=== PATIENT | male | born 1955 | race Caucasian/White ===

== ENCOUNTER 2019-05-13 06:38 | Emergency (ER) | payer OTHER ==
[~2019-05-13] VITALS: Ht 180.3 cm; Wt 95.2 kg
[~2019-05-13 06:38] MED LIST: ALBU3IS INH; ALBU90OI61 INH; ARIP20 PO; Bactrim Ds Tab1 EACH PO; FURO20 PO; Ferosul325 MG PO; Flovent Diskus50 MCG IH; INSULANPEN SC; LAMO100 PO; LEVSOD100 PO; MOME220I INH; Novolog100 UNIT/2; Novolog100 UNIT/2 SC; Omeprazole20 M1 PO; SERT100 PO; TROSPIUM CHLORI20 MG PO; ZEPATIER 50-101 EACH PO
== END 2019-05-13 08:09 | disposition home or self-care (01) ==
LOC: ER 06:38
DX: J31.2 Chronic pharyngitis (principal); J02.9 Acute pharyngitis, unspecified; J44.9 Chronic obstructive pulmonary disease, unspecified; E11.9 Type 2 diabetes mellitus without complications; I10 Essential (primary) hypertension; F31.9 Bipolar disorder, unspecified; D64.9 Anemia, unspecified; Z85.46 Personal history of malignant neoplasm of prostate

== ENCOUNTER 2020-11-29 10:34 | Emergency (ER) | payer OTHER ==
[~2020-11-29] VITALS: Ht 177.8 cm; Wt 81.7 kg
[2020-11-29 11:47] LABS: Source, Urine Catheter
[2020-11-29 12:11] LABS: Appearance, Urine Clear (Clear); Bilirubin, Urine Neg (Neg); Blood, Urine 2+ (Neg); Color, Urine Yellow (P-Yellow); Glucose Qualitative, Urine 4+ (Neg); Ketones, Urine Neg (Neg); Leukocyte Esterase, Urine 1+ (Neg); Nitrite, Urine Neg (Neg); Protein, Urine 2+ (Neg); Specific Gravity, Urine 1.015 (1.003-1.022); Urobilinogen, Urine NORM (Normal)
[2020-11-29 12:32] LABS: Bacteria Few /hpf; Squamous Epithelial Cells Not Seen /hpf (Few)
[2020-11-29 12:34] LABS: Hyaline Casts Rare /lpf (0-2)
== END 2020-11-29 12:14 | disposition home or self-care (01) ==
LOC: ER 10:34
PROVIDERS: Emergency Medicine
DX: R31.0 Gross hematuria (principal); R33.9 Retention of urine, unspecified; J44.9 Chronic obstructive pulmonary disease, unspecified; E11.9 Type 2 diabetes mellitus without complications; I10 Essential (primary) hypertension; D64.9 Anemia, unspecified; Z88.1 Allergy status to other antibiotic agents; Z88.8 Allergy status to other drugs, medicaments and biological substances; Z79.899 Other long term (current) drug therapy; Z79.4 Long term (current) use of insulin; Z87.891 Personal history of nicotine dependence
CPT/HCPCS: 51700; 51702; 51798; 81001; 87086; 99283-25

== ENCOUNTER 2020-12-12 22:13 | Emergency (ER) | payer OTHER ==
[~2020-12-12] VITALS: Ht 177.8 cm; Wt 83.9 kg
[2020-12-12 23:22] LABS: BASOPHILS ABSOLUTE AUTO 0.04 K/mm3 (0.00-0.23); BASOPHILS PERCENT AUTO 0 % (0-2); EOSINOPHILS ABSOLUTE AUTO 0.18 K/mm3 (0.00-0.68); EOSINOPHILS PERCENT AUTO 2 % (0-6); Hematocrit 33.5 % (37.0-53.0); Hemoglobin 11.2 g/dL (13.5-17.5); IMMATURE GRAN ABSOLUTE AUTO 0.08 K/mm3 (0.00-0.10); IMMATURE GRAN PERCENT AUTO 1 % (0-1); LYMPHOCYTES ABSOLUTE AUTO 0.49 K/mm3 (0.84-5.20); LYMPHOCYTES PERCENT AUTO 5 % (21-46); MONOCYTES PERCENT AUTO 6 % (4-13); Mean Corpuscular HGB 28.9 pg (26.0-34.0); Mean Corpuscular HGB Conc 33.4 g/dL (31.5-36.5); Mean Corpuscular Volume 86 fL (80-100); Mean Platelet Volume 9.8 fL (9.1-12.4); NEUTROPHILS ABSOLUTE AUTO 8.05 K/mm3 (1.96-9.15); NEUTROPHILS PERCENT AUTO 85 % (41-73); Platelet Count 218 K/mm3 (150-400); RDW Standard Deviation 44.5 fL (35.1-46.3); Red Blood Cell Count 3.88 M/mm3 (4.30-5.90); White Blood Cell Count 9.44 K/mm3 (4.00-11.30)
[2020-12-12 23:39] LABS: Alanine Aminotransfer (ALT/SGP 18 U/L (12-78); Albumin, Blood 2.8 g/dL (3.4-5.0); Albumin/Globulin Ratio 0.6 (0.8-1.8); Alk Phos 180 U/L (50-136); Anion Gap 7 mmol/L (6-16); Aspartate Aminotrans (AST/SGOT 23 U/L (12-37); Bilirubin, Total 0.5 mg/dL (0.1-1.0); Blood Urea Nitrogen 13 mg/dL (8-24); Bun/Creatinine Ratio 13.2 (12.0-20.0); CO2, Blood 25 mmol/L (21-32); Chloride, Blood 105 mmol/L (98-108); Creatinine, Blood 0.98 mg/dL (0.60-1.20); Glomerular Filtration Rate >60 (60-); Glucose, Blood 216 mg/dL (70-99); Potassium, Blood 4.1 mmol/L (3.5-5.5); Sodium, Blood 137 mmol/L (136-145); Total Protein, Blood 7.8 g/dL (6.4-8.2)
[2020-12-13] MEDS ORDERED: LEVFLO500 PO (00:03)
== END 2020-12-13 00:50 | disposition home or self-care (01) ==
LOC: ER 22:13
PROVIDERS: Physician Assistant
DX: T83.018A Breakdown (mechanical) of other urinary catheter, initial encounter (principal); N45.1 Epididymitis; N50.3 Cyst of epididymis; J44.9 Chronic obstructive pulmonary disease, unspecified; E11.9 Type 2 diabetes mellitus without complications; I10 Essential (primary) hypertension; D64.9 Anemia, unspecified; Z88.1 Allergy status to other antibiotic agents; Z88.8 Allergy status to other drugs, medicaments and biological substances; Z79.899 Other long term (current) drug therapy; Z79.4 Long term (current) use of insulin; Z87.891 Personal history of nicotine dependence; Y83.3 Surgical operation with formation of external stoma as the cause of abnormal reaction of the patient, or of later complication, without mention of misadventure at the time of the procedure
CPT/HCPCS: 36415; 51798; 76870; 80053; 85025; 96374-59; 96375-59; 99284-25; A9270; J2270; J2405

== ENCOUNTER 2020-12-13 16:50 | Emergency (ER) | payer OTHER ==
[~2020-12-13] VITALS: Ht 177.8 cm; Wt 83.9 kg
[~2020-12-13 16:50] MED LIST changes: +LEVFLO500 PO
[2020-12-13 22:35] LABS: Source, Urine Catheter
[2020-12-13 22:38] LABS: Appearance, Urine Cloudy (Clear); Bilirubin, Urine Neg (Neg); Blood, Urine 5+ (Neg); Color, Urine Amber (P-Yellow); Glucose Qualitative, Urine 4+ (Neg); Ketones, Urine Neg (Neg); Leukocyte Esterase, Urine 3+ (Neg); Nitrite, Urine Neg (Neg); Protein, Urine 3+ (Neg); Specific Gravity, Urine 1.005 (1.003-1.022); Urobilinogen, Urine NORM (Normal); pH, Urine 6.5 (5.0-8.0)
[2020-12-13 22:44] LABS: Red Blood Cells, Urine TNTC /hpf (0-2); White Blood Cells, Urine 50-100 /hpf (0-5)
[2020-12-13 22:45] LABS: Bacteria Mod /hpf; Squamous Epithelial Cells Not Seen /hpf (Few)
== END 2020-12-13 20:07 | disposition home or self-care (01) ==
LOC: ER 16:50
PROVIDERS: Emergency Medicine
DX: T83.098A Other mechanical complication of other urinary catheter, initial encounter (principal); R32 Unspecified urinary incontinence; J44.9 Chronic obstructive pulmonary disease, unspecified; E11.9 Type 2 diabetes mellitus without complications; I10 Essential (primary) hypertension; D64.9 Anemia, unspecified; Z88.1 Allergy status to other antibiotic agents; Z88.8 Allergy status to other drugs, medicaments and biological substances; Z79.4 Long term (current) use of insulin; Z79.899 Other long term (current) drug therapy; Z87.891 Personal history of nicotine dependence
CPT/HCPCS: 51700; 81001; 87070; 87075; 87086; 87205; 99283-25

== ENCOUNTER 2020-12-13 21:42 | Emergency (ER) | payer OTHER ==
[~2020-12-13] VITALS: Ht 177.8 cm; Wt 83.9 kg
== END 2020-12-13 23:17 | disposition home or self-care (01) ==
LOC: ER 21:42
DX: R32 Unspecified urinary incontinence (principal); R30.0 Dysuria; T81.31XA Disruption of external operation (surgical) wound, not elsewhere classified, initial encounter; J44.9 Chronic obstructive pulmonary disease, unspecified; E11.9 Type 2 diabetes mellitus without complications; I10 Essential (primary) hypertension; D64.9 Anemia, unspecified; Z88.1 Allergy status to other antibiotic agents; Z88.8 Allergy status to other drugs, medicaments and biological substances; Z79.899 Other long term (current) drug therapy; Z79.4 Long term (current) use of insulin; Z87.891 Personal history of nicotine dependence
CPT/HCPCS: 51702; 51798; 99282-25

== ENCOUNTER 2020-12-27 18:02 | Emergency (ER) | payer OTHER ==
[~2020-12-27] VITALS: Ht 177.8 cm; Wt 84.4 kg
[2020-12-27 19:05] LABS: BASOPHILS ABSOLUTE AUTO 0.05 K/mm3 (0.00-0.23); BASOPHILS PERCENT AUTO 1 % (0-2); EOSINOPHILS ABSOLUTE AUTO 0.13 K/mm3 (0.00-0.68); EOSINOPHILS PERCENT AUTO 2 % (0-6); Hematocrit 37.8 % (37.0-53.0); Hemoglobin 12.4 g/dL (13.5-17.5); IMMATURE GRAN ABSOLUTE AUTO 0.03 K/mm3 (0.00-0.10); IMMATURE GRAN PERCENT AUTO 0 % (0-1); LYMPHOCYTES ABSOLUTE AUTO 1.19 K/mm3 (0.84-5.20); LYMPHOCYTES PERCENT AUTO 14 % (21-46); MONOCYTES ABSOLUTE AUTO 0.83 K/mm3 (0.16-1.47); MONOCYTES PERCENT AUTO 10 % (4-13); Mean Corpuscular HGB 28.2 pg (26.0-34.0); Mean Corpuscular HGB Conc 32.8 g/dL (31.5-36.5); Mean Corpuscular Volume 86 fL (80-100); Mean Platelet Volume 10.9 fL (9.1-12.4); NEUTROPHILS ABSOLUTE AUTO 6.28 K/mm3 (1.96-9.15); NEUTROPHILS PERCENT AUTO 74 % (41-73); Platelet Count 163 K/mm3 (150-400); RDW Coefficient Variation 14.8 % (11.7-14.2); White Blood Cell Count 8.51 K/mm3 (4.00-11.30)
[2020-12-27 19:26] LABS: Alanine Aminotransfer (ALT/SGP 22 U/L (12-78); Albumin, Blood 3.5 g/dL (3.4-5.0); Albumin/Globulin Ratio 0.7 (0.8-1.8); Alk Phos 137 U/L (50-136); Anion Gap 6 mmol/L (6-16); Aspartate Aminotrans (AST/SGOT 21 U/L (12-37); Bilirubin, Total 0.3 mg/dL (0.1-1.0); Blood Urea Nitrogen 17 mg/dL (8-24); Bun/Creatinine Ratio 16.2 (12.0-20.0); CO2, Blood 24 mmol/L (21-32); Calcium, Blood 9.3 mg/dL (8.5-10.1); Chloride, Blood 102 mmol/L (98-108); Creatinine, Blood 1.05 mg/dL (0.60-1.20); Globulin, Blood 4.8 g/dL (2.2-4.0); Glomerular Filtration Rate >60 (60-); Glucose, Blood 338 mg/dL (70-99); Potassium, Blood 4.7 mmol/L (3.5-5.5); Sodium, Blood 132 mmol/L (136-145); Total Protein, Blood 8.3 g/dL (6.4-8.2)
[2020-12-27] MEDS ORDERED: Cephalexin500 MG PO (19:55)
[2020-12-28] MEDS ORDERED: CYCL10 PO (22:50)
== END 2020-12-27 20:20 | disposition home or self-care (01) ==
LOC: ER 18:02
PROVIDERS: Emergency Medicine
DX: M54.2 Cervicalgia (principal); R68.84 Jaw pain; J44.9 Chronic obstructive pulmonary disease, unspecified; E11.9 Type 2 diabetes mellitus without complications; I10 Essential (primary) hypertension; D64.9 Anemia, unspecified; Z88.1 Allergy status to other antibiotic agents; Z88.8 Allergy status to other drugs, medicaments and biological substances; Z79.4 Long term (current) use of insulin; Z79.899 Other long term (current) drug therapy; Z87.891 Personal history of nicotine dependence
CPT/HCPCS: 36415; 80053; 85025; 99283; A9270

== ENCOUNTER 2020-12-28 20:42 | Emergency (ER) | payer OTHER ==
[~2020-12-28] VITALS: Ht 177.8 cm; Wt 83.9 kg
[~2020-12-28 20:42] MED LIST changes: +Cephalexin500 MG PO
[2020-12-28] MEDS ORDERED: CYCL10 PO (22:50)
== END 2020-12-29 02:00 | disposition home or self-care (01) ==
LOC: ER 20:42
DX: S16.1XXA Strain of muscle, fascia and tendon at neck level, initial encounter (principal); S13.4XXA Sprain of ligaments of cervical spine, initial encounter; I10 Essential (primary) hypertension; J44.9 Chronic obstructive pulmonary disease, unspecified; E11.9 Type 2 diabetes mellitus without complications; D64.9 Anemia, unspecified; Z79.899 Other long term (current) drug therapy; Z79.4 Long term (current) use of insulin; X58.XXXA Exposure to other specified factors, initial encounter
CPT/HCPCS: 70491; 96372; 99283-25; A9270; J1885; Q9967

== ENCOUNTER 2021-09-05 21:41 | Emergency (ER) | payer OTHER ==
[~2021-09-05] VITALS: Ht 177.8 cm; Wt 77.1 kg
[~2021-09-05 21:41] MED LIST changes: +CYCL10 PO
[2021-09-06] MEDS ORDERED: CEPH500 PO (00:26)
== END 2021-09-06 00:38 | disposition home or self-care (01) ==
LOC: ER 21:41
DX: L03.116 Cellulitis of left lower limb (principal); I10 Essential (primary) hypertension; J44.9 Chronic obstructive pulmonary disease, unspecified; Z88.1 Allergy status to other antibiotic agents; Z88.8 Allergy status to other drugs, medicaments and biological substances; Z79.4 Long term (current) use of insulin; Z79.899 Other long term (current) drug therapy
CPT/HCPCS: 93926; 93971; 96372; 99283-25; A9270; J1885

== ENCOUNTER 2021-10-25 18:11 | Emergency (ER) | payer OTHER ==
[~2021-10-25] VITALS: Ht 180.3 cm; Wt 79.4 kg
[~2021-10-25 18:11] MED LIST changes: +CEPH500 PO
[2021-10-25] MEDS ORDERED: CEPH500 PO (19:11)
== END 2021-10-25 19:15 | disposition home or self-care (01) ==
LOC: ER 18:11
DX: M25.561 Pain in right knee (principal); L53.9 Erythematous condition, unspecified; J44.9 Chronic obstructive pulmonary disease, unspecified; I10 Essential (primary) hypertension; E11.9 Type 2 diabetes mellitus without complications; Z79.899 Other long term (current) drug therapy; Z79.4 Long term (current) use of insulin; Z88.8 Allergy status to other drugs, medicaments and biological substances; Z88.1 Allergy status to other antibiotic agents; Z87.891 Personal history of nicotine dependence
CPT/HCPCS: 99283

== ENCOUNTER 2022-08-18 20:58 | Emergency (ER) | payer OTHER ==
[~2022-08-18] VITALS: Ht 177.8 cm; Wt 72.6 kg
[2022-08-18 21:05] VITALS: BP 186/97
[2022-08-18] MEDS ORDERED: ASPI81CH PO (21:09)
[2022-08-18] MEDS ORDERED: LOSA50 PO (21:09)
[2022-08-18] MEDS ORDERED: METF500 PO (21:10)
[2022-08-18] MEDS ORDERED: GABA300 PO (23:05)
== END 2022-08-18 23:02 | disposition left against medical advice (07) ==
LOC: ER 20:58
DX: M79.2 Neuralgia and neuritis, unspecified (principal); Z88.1 Allergy status to other antibiotic agents; Z88.8 Allergy status to other drugs, medicaments and biological substances; Z79.899 Other long term (current) drug therapy; Z79.82 Long term (current) use of aspirin; Z79.84 Long term (current) use of oral hypoglycemic drugs; E11.9 Type 2 diabetes mellitus without complications; I10 Essential (primary) hypertension; E03.9 Hypothyroidism, unspecified; E11.40 Type 2 diabetes mellitus with diabetic neuropathy, unspecified
CPT/HCPCS: 93971

== ENCOUNTER 2022-12-31 07:13 | Day surgery (SDC) | payer OTHER ==
[2022-12-31] VITALS (8 sets, daily range): BP systolic 146–213; BP diastolic 80–123
[~2022-12-31] VITALS: Ht 177.8 cm; Wt 158.0 kg
[~2022-12-31 07:13] MED LIST changes: +ASPI81CH PO; +B-12500 MC2 PO; +C COMPLEX1000 M1 PO; +GABA300 PO; +HYDHCL25 PO; +INSULANPEN; +JARDIANCE25 MG PO; -LEVSOD100 PO; +LEVSOD150 PO; +LOSA50 PO; +METF500 PO; +MULTI-VITAMIN1 EAC2 PO; +OMEP20ER PO; -Omeprazole20 M1 PO; +ZOLP10 PO; +ZYRTEC10 M2 PO; +Zinc Gluconate100 MG PO
[2022-12-31 08:20] LABS: Hematocrit 38.4 % (37.0-53.0); Hemoglobin 13.3 g/dL (13.5-17.5); Mean Corpuscular HGB 30.2 pg (26.0-34.0); Mean Corpuscular HGB Conc 34.6 g/dL (31.5-36.5); Mean Corpuscular Volume 87 fL (80-100); Mean Platelet Volume 11.1 fL (9.1-12.4); Platelet Count 120 K/mm3 (150-400); RDW Coefficient Variation 13.8 % (11.7-14.2); RDW Standard Deviation 43.9 fL (35.1-46.3); White Blood Cell Count 5.02 K/mm3 (4.00-11.30)
[2022-12-31] MEDS ORDERED: METO50 PO (08:24)
[2022-12-31] MEDS ORDERED: Vitamin D1000 UNI1 PO (08:24)
[2022-12-31] MEDS ORDERED: MELA3 PO (08:25)
[2022-12-31] MEDS ORDERED: Vitamin B Comple1 EA PO (08:25)
[2022-12-31] MEDS ORDERED: VITAMIN E PO (08:26)
[2022-12-31 08:35] LABS: Prothrombin Time Results 10.5 Sec (9.7-11.5)
[2022-12-31 08:39] LABS: Albumin, Blood 3.5 g/dL (3.4-5.0); Albumin/Globulin Ratio 0.8 (0.8-1.8); Bilirubin, Total 0.5 mg/dL (0.1-1.0); Bun/Creatinine Ratio 19.9 (12.0-20.0); Calcium, Blood 8.9 mg/dL (8.5-10.1); Creatinine, Blood 0.91 mg/dL (0.60-1.20); Globulin, Blood 4.4 g/dL (2.2-4.0); Potassium, Blood 4.2 mmol/L (3.5-5.5); Total Protein, Blood 7.9 g/dL (6.4-8.2)
--- NOTE | 2022-12-31 10:30 | NUR ---
[facility] from procedure A&O. right radial artery band in place. left venous site soft and nontender. no bleeding
--- NOTE | 2022-12-31 13:31 | NUR ---
LEFT VENOUS DRESSING REMOVED. SITE SOFT AND NONTENDER.
--- NOTE | 2022-12-31 13:49 | NUR ---
PATIENT AND SO VERBALIZED UNDERSTANDING OF DISCHARGE INSTRUCTIONS AND PRECAUTIONS. NO FURTHER QUESTIONS. IV SITE DCED WITH CATHETER INTACT. RIGHT RADIAL BAND REMOVED SITE SOFT AND NONTENDER. NO BLEEDING. WRIST BOARD AND SLING IN PLACE. PATIENT DISCHARGED VIA WHEEL CHAIR WITH . SO DRIVING.NATHAN
== END 2022-12-31 13:50 | disposition home or self-care (01) ==
LOC: MHTC 07:13
PROVIDERS: Internal Medicine Interventional Cardiology
DX: I27.20 Pulmonary hypertension, unspecified (principal); Z95.3 Presence of xenogenic heart valve; Z98.890 Other specified postprocedural states; E78.5 Hyperlipidemia, unspecified; E03.9 Hypothyroidism, unspecified; N18.9 Chronic kidney disease, unspecified; E11.22 Type 2 diabetes mellitus with diabetic chronic kidney disease; I12.9 Hypertensive chronic kidney disease with stage 1 through stage 4 chronic kidney disease, or unspecified chronic kidney disease; Z88.8 Allergy status to other drugs, medicaments and biological substances
CPT/HCPCS: 76937; 80053; 85027; 85610; 93460; C1769; C1887; C1894; J1644; J2250; J3010; J7030; J7040; J7050; Q9967

== ENCOUNTER 2023-10-04 16:45 | Emergency (ER) | payer OTHER ==
[~2023-10-04] VITALS: Ht 177.8 cm; Wt 81.7 kg
[~2023-10-04 16:45] MED LIST changes: +MELA3 PO; +METO50 PO; +VITAMIN E PO; +Vitamin B Comple1 EA PO; +Vitamin D1000 UNI1 PO
[2023-10-04] MEDS ORDERED: HYDROmorphone HCl/Pf 1MG SYR IV ONE (18:30)
[2023-10-04 18:55] LABS: Source, Urine Condom Cath
[2023-10-04] MEDS ORDERED: GABA300 PO (18:57)
[2023-10-04 19:01] LABS: Appearance, Urine Cloudy (Clear); Bilirubin, Urine Neg (Neg); Blood, Urine 4+ (Neg); Color, Urine Yellow (P-Yellow); Glucose Qualitative, Urine Neg (Neg); Ketones, Urine Neg (Neg); Leukocyte Esterase, Urine 3+ (Neg); Nitrite, Urine Neg (Neg); Protein, Urine 3+ (Neg); Specific Gravity, Urine 1.025 (1.003-1.022); Urobilinogen, Urine NORM (Normal)
[2023-10-04 19:02] LABS: BASOPHILS ABSOLUTE AUTO 0.02 K/mm3 (0.00-0.23); BASOPHILS PERCENT AUTO 0 % (0-2); EOSINOPHILS ABSOLUTE AUTO 0.11 K/mm3 (0.00-0.68); EOSINOPHILS PERCENT AUTO 1 % (0-6); Hematocrit 36.3 % (37.0-53.0); Hemoglobin 12.3 g/dL (13.5-17.5); IMMATURE GRAN ABSOLUTE AUTO 0.03 K/mm3 (0.00-0.10); IMMATURE GRAN PERCENT AUTO 0 % (0-1); LYMPHOCYTES ABSOLUTE AUTO 1.26 K/mm3 (0.84-5.20); LYMPHOCYTES PERCENT AUTO 15 % (21-46); MONOCYTES PERCENT AUTO 9 % (4-13); Mean Corpuscular HGB 28.9 pg (26.0-34.0); Mean Corpuscular HGB Conc 33.9 g/dL (31.5-36.5); Mean Corpuscular Volume 85 fL (80-100); Mean Platelet Volume 11.3 fL (9.1-12.4); NEUTROPHILS ABSOLUTE AUTO 6.13 K/mm3 (1.96-9.15); NEUTROPHILS PERCENT AUTO 74 % (41-73); Platelet Count 106 K/mm3 (150-400); RDW Coefficient Variation 15.6 % (11.7-14.2); RDW Standard Deviation 48.8 fL (35.1-46.3); Red Blood Cell Count 4.26 M/mm3 (4.30-5.90); White Blood Cell Count 8.25 K/mm3 (4.00-11.30)
[2023-10-04 19:07] LABS: Bacteria Few /hpf; Squamous Epithelial Cells Rare /hpf (Few); White Blood Cells, Urine TNTC /hpf (0-5)
[2023-10-04 19:19] LABS: Albumin, Blood 2.9 g/dL (3.4-5.0); Albumin/Globulin Ratio 0.7 (0.8-1.8); Bilirubin, Total 0.7 mg/dL (0.1-1.0); Bun/Creatinine Ratio 23.4 (12.0-20.0); Creatinine, Blood 0.94 mg/dL (0.60-1.20); Globulin, Blood 4.3 g/dL (2.2-4.0); Potassium, Blood 4.3 mmol/L (3.5-5.5); Total Protein, Blood 7.2 g/dL (6.4-8.2)
[2023-10-04] MEDS ORDERED: CefTRIAXone Sodium 1,000 MG in NS 50 ML IV ONE (21:05)
[2023-10-04] MEDS ORDERED: CEPH500 PO (21:06)
[2023-10-04 21:27] VITALS: BP 136/70
== END 2023-10-04 21:27 | disposition home or self-care (01) ==
LOC: ER 16:45
PROVIDERS: Emergency Medicine
DX: N39.0 Urinary tract infection, site not specified (principal); J44.9 Chronic obstructive pulmonary disease, unspecified; I10 Essential (primary) hypertension; F31.9 Bipolar disorder, unspecified; E03.9 Hypothyroidism, unspecified; E11.40 Type 2 diabetes mellitus with diabetic neuropathy, unspecified; Z88.1 Allergy status to other antibiotic agents; Z88.8 Allergy status to other drugs, medicaments and biological substances; Z79.82 Long term (current) use of aspirin; Z79.4 Long term (current) use of insulin; Z79.84 Long term (current) use of oral hypoglycemic drugs; Z79.899 Other long term (current) drug therapy
CPT/HCPCS: 74177; 80053; 81001; 83605; 85025; 86850; 86900; 86901; 87077; 87086; 87186; 96374-59; 96375; 99284-25; J0696; J1170; Q9967

== ENCOUNTER 2024-02-02 06:38 | Day surgery (SDC) | payer OTHER ==
[2024-02-02] VITALS (9 sets, daily range): BP systolic 97–169; BP diastolic 65–88
[~2024-02-02 06:38] MED LIST changes: +ABILIFY MYCITE20 M2 PO; +ALBU90OI INH; +ALFU10 PO; +AMLO5 PO; +FERSU300 PO; +METF500C PO; +METO25 PO; +SPIR25 PO
[2024-02-02] MEDS ORDERED: TORSE20 PO (06:39)
[2024-02-02] MEDS ORDERED: propofoL 40 ML IV ONE (06:45)
[2024-02-02] MEDS ORDERED: Lidocaine HCl 2% 20 ML MDV ONE (06:45)
[2024-02-02] MEDS ORDERED: Benzocaine Oral Spray 0.5ML UD ONE (06:50)
[2024-02-02] MEDS ORDERED: NS 1,000 ML IV ONE (06:58)
--- NOTE | 2024-02-02 08:00 | NUR ---
ASSUMED CARE FROM ANESTHESIA. PT AWAKE AND VERBALIZING WELL.
--- NOTE | 2024-02-02 08:30 | NUR ---
PT AND VERBALIZED UNDERSTANDING OF WRITTEN AND VERBAL D/C INST. IV REMVOED. PT TAKEN OUT OF THE HRT CENTER VIA W/C.
== END 2024-02-02 23:24 | disposition home or self-care (01) ==
LOC: MHTC 06:38 → ORSCMMR 06:39 → MHTC 23:24
DX: I05.9 Rheumatic mitral valve disease, unspecified (principal); Z95.4 Presence of other heart-valve replacement
CPT/HCPCS: 93312; 93325; A9270; J2704; J7030